=== PATIENT | female | born 1980 | race Caucasian/White ===

== ENCOUNTER 2018-09-08 10:51 | Outpatient (CLI) | payer OTHER ==
--- NOTE | 2018-09-08 11:50 | MRI ---
MR OF THE LEFT KNEE WITHOUT CONTRAST INDICATION: Left knee pain after fall TECHNIQUE: Axial and coronal PD fat sat, sagittal T2 fat sat, sagittal PD turbo spin echo and T1 adi nal images were obtained of the left knee. COMPARISON: None. FINDINGS: Joint effusion: None. Semimembranosus-medial gastrocnemius popliteal cyst: Small sized Martinez's cyst. Ligaments: The ACL, PCL, MCL and LCLC are intact. Extensor mechanism: Intact. Menisci: Intact. Articular cartilage: Intact. Osseous structures: Normal marrow signal. Popliteus and IT band: Normal. IMPRESSION: 1. Normal exam.
== END 2018-09-08 10:52 | disposition home or self-care (01) ==
LOC: BICMRI 10:51
PROVIDERS: ATTEND Family Medicine
DX: S80.02XD Contusion of left knee, subsequent encounter (principal)

== ENCOUNTER 2020-07-17 16:48 | Emergency (ER) ==
[2020-07-17] MEDS ORDERED: Boostrix 0.5 ML (Tdap) VIAL ONE (18:49)
== END 2020-07-17 19:08 | disposition home or self-care (01) ==
LOC: ERS 16:48
DX: S80.12XA Contusion of left lower leg, initial encounter (principal); E05.90 Thyrotoxicosis, unspecified without thyrotoxic crisis or storm; Z87.891 Personal history of nicotine dependence; Z79.899 Other long term (current) drug therapy; Y04.8XXA Assault by other bodily force, initial encounter
CPT/HCPCS: 90715

== ENCOUNTER 2020-09-21 14:53 | Outpatient (CLI) | payer OTHER | END 2020-09-21 14:54 | disposition home or self-care (01) | LOC: SCSMRI 14:53 | PROVIDERS: ATTEND Family Medicine | DX: S89.92XD Unspecified injury of left lower leg, subsequent encounter (principal) ==